=== PATIENT | male | born 1965 | race Caucasian/White ===

== ENCOUNTER 2017-11-10 12:51 | Inpatient (IN) | payer MEDICAID, SELFPAY ==
[2017-11-10] VITALS (36 sets, daily range): BP systolic 59–202; BP diastolic 35–130; PULSE 56–112; RESP 14–24; TEMP 35–35.7; O2SAT 83–100; BMI 26.0; BMI 22.6
--- NOTE | 2017-11-10 12:56 | EKG12_ITS ---
Test Reason : POST ARREST Blood Pressure : / mmHG Vent. Rate : 072 BPM Atrial Rate : 072 BPM P-R Int : 144 ms QRS Dur : 148 ms QT Int : 460 ms P-R-T Axes : 075 046 108 degrees QTc Int : 503 ms Normal sinus rhythm Right bundle branch block T wave abnormality, consider lateral ischemia Abnormal ECG Confirmed by MINESH CABRERA, ASHLY ([id number]), editor continuity and script LLOYD PERDUE ([id number]) on 11/17/2017 8:35:42 AM Referred By: NAV Confirmed By:ASHLY EDGE MD
--- NOTE | 2017-11-10 12:56 | CT_ITS ---
STUDY: CT BRAIN WITHOUT CONTRAST REASON FOR EXAM: Male, 52 years old. Severe occipital headaches. CODE BLUE. RADIATION DOSAGE (If Supplied By Facility): CTDIvol = ( 44.99 ) mGy, DLP = ( 745.49 ) mGycm TECHNIQUE: Transaxial CT imaging of the brain was performed without administration of intravenous contrast material. Individualized dose optimization techniques were used for this CT. COMPARISON: None. FINDINGS: Normal soft tissue structures. Normal calvarium. Normal size ventricles and extra-axial spaces for the patient's age. Normal white matter tracts of the cerebral hemispheres. Normal basal ganglia and thalami. Normal brainstem. Normal cerebellum. There is no intracranial hemorrhage. There are no findings of an acute ischemic infarction. Normal visualized paranasal sinuses. CT/Brain/Head without Contrast IMPRESSION: Normal unenhanced CT scan of the brain. Electronically Signed: Jose Daniel Marie MD at 13:33 EST Tel [phone], Service support ,
--- NOTE | 2017-11-10 13:02 | NURSING ---
NO OLD EKGS
--- NOTE | 2017-11-10 13:13 | ED.DCSUM_ITS ---
- ER Visit Summary Date of Service: 11/10/17 Chief Complaint: Found unresponsive in garage History of Present Illness: The patient is a 52 M with no past medical history on no medications or herbal supplements was found unresponsive garage floor. No motor vehicles were running. Initial rhythm was V. fib. He arrived with a wide complex rhythm and hypotension. He was intubated successfully in the field. Breath sounds were noted bilaterally and there was appropriate change on capnometer. Raya states he was seen at urgent care for occipital headache and received a tetanus shot. Spoke with his mother at 1305. She states he saw the doctor a couple of days ago for chest pain. He has been complaining of occipital/posterior neck pain for the past 2 days. He apparently has not felt well and has had weight loss. She confirms he has no medical problems other than allergy to bee sting and is on no medication or herbal supplements. He does not smoke or drink. Physical Examination: Pupils are fixed and dilated. GCS is 3T. Trachea is midline. Breath sounds are noted bilaterally. Heart is regular. Pulses noted upper and lower extremities and symmetric. Abdomen is flat. Test Results: First EKG reveals a sinus rhythm rate of 72 with right bundle branch block. Chest x-ray reveals endotracheal tube to be in proper position. CT of the head reviewed by me reveals no acute subarachnoid hemorrhage or intracranial hemorrhage to explain patient's occipital headache. CBC is unremarkable. BMP reveals a CO2 of 13 with an anion gap of 28. Creatinine is 2.16 and glucose is 544. ALT and AST are greater than 900. INR and PTT are elevated at 2.0 and 81.4. Troponins indeterminate 0.36. Lactate is 21.9. This has poor prognosis. Emergency Department Course and Treatment: Patient was placed on ventilator. OG was placed per nursing staff and Hooper was placed per nursing staff. Because chief complaint was head pain a CT of the head was obtained to rule out subarachnoid hemorrhage. Troponin was added since mother reports he complained of chest pain 2-3 days ago. Hypothermic protocol was not initiated since patient is hemodynamically unstable. Chest x-ray was obtained to confirm position of endotracheal tube and orogastric tube. Bradycardia event in the radiology suite. Dr. Sauer intervened. He was brought back to the ER after completion of his scan. He has had 2 additional episodes of PEA. He was treated per ACLS algorithm. After second event spoke with nephew, brother and mother. It was determined if he has another episode of PEA will not intervene. Mother and brother were informed he will require admission to the intensive care unit. Depending on test results he may need transfer to a tertiary care facility. Treatment Plan: Treat hyperglycemia, hypotension and admission to ICU. Dr. Vic Girard is aware patient. Dr. Pascual has been made aware patient. Disposition: Admit ICU critical condition Impression: 1. Cardiopulmonary arrest 2. DIC 3. Shock liver 4. New right bundle branch block with elevated troponin 5. Lactic acidosis (anion gap acidosis) 6. Hyperglycemia 7. Renal failure, creatinine 2.16 8. Hypotension/PEA This note was generated with [employer] dictation software. It may contain incorrect words, spelling, and punctuation that were not noted in review of the chart prior to signing ED Disposition - Plan for ED Patient: Chief Complaint: CPR Referrals: Bhaskar Blake MD [Primary Care Provider] -
[2017-11-10 13:19] LABS: Prothrombin Time (Protime)PT. 21.9 SECONDS (11.7-14.9)
[2017-11-10 13:20] LABS: Partial Thromboplast Time 81.4 Seconds (24.1-36.2)
[2017-11-10 13:30] LABS: Hematocrit 41.3 % (40-54); Hemoglobin 13.2 g/dl (13.0-16.5); Mean Corpuscular Hgb 31.1 pg (27.0-32.0); Mean Corpuscular Volume 97.2 fL (80-94); Mean Platelet Vol. 10.9 fl (6.2-12.0); Platelet Count 87 K/mm3 (150-450); RBC Distribution Width CV 12.4 % (11.6-14.6); RBC Distribution Width SD 42.6 fl (35.1-43.9); Red Blood Count 4.25 M/mm3 (4.6-6.2)
[2017-11-10 13:31] LABS: Differential Indicated MANUAL DIFF; POSITIVE COUNT YES; POSITIVE DIFFERENTIAL YES; POSITIVE MORPHOLOGY YES
[2017-11-10 13:39] LABS: ALB/GLOB Ratio 1.1 RATIO (0.9-2.4); AST(SGOT) 975 U/L (15-37); Alanine Aminotransfer ALT/SGPT 951 U/L (16-61); Albumin, Serum 3.1 g/dL (3.2-5.0); Alkaline Phosphatase 124 U/L (45-117); Anion Gap 28 (5-15); BUN 17 mg/dL (7-18); BUN/Creat Ratio 7.9 RATIO (10-20); Calcium,Total 9.2 mg/dL (8.5-10.1); Chloride 100 mmol/L (98-107); Creatinine, Serum 2.16 mg/dL (0.70-1.30); EST Glomerular Filtration Rate 34 mL/min (>60); Est Glom Filt Rate - Afr Amer 41 mL/min (>60); Estimated Creatinine Clearance 46.51 ml/min; Globulin 2.8 g/dL (2.2-4.2); Glucose 544 mg/dL (70-110); Protein, Total 5.9 g/dL (6.4-8.2); Sodium Level 141 mmol/L (136-145)
--- NOTE | 2017-11-10 13:39 | EKG12_ITS ---
Test Reason : REPEAT Blood Pressure : / mmHG Vent. Rate : 099 BPM Atrial Rate : 099 BPM P-R Int : 130 ms QRS Dur : 148 ms QT Int : 402 ms P-R-T Axes : 076 047 077 degrees QTc Int : 515 ms Normal sinus rhythm Right bundle branch block Abnormal ECG Confirmed by MINESH CABRERA, ASHLY ([id number]), editor trade journal LLOYD PERDUE ([id number]) on 11/17/2017 8:36:00 AM Referred By: KELLY Confirmed By:ASHLY EDGE MD
[2017-11-10 13:52] LABS: Lactic Acid 21.9 mmol/L (0.4-2.0)
[2017-11-10] MEDS: Sodium Bicarbonate 8.4% 50 ML Syringe 100 MEQ IV (14:12)
[2017-11-10 14:16] LABS: Base Excess -25 mmol/L (-2 to +2); Blood Gas Specimen Type ART; FI02 100; Mode A-C; O2 Delivery Device Vent; PEEP 5; PO2 275 mmHG (75-100); RR 14; SITE R Radial; SO2 99 % (95-99); Time Given 1410; Total Carbon Dioxide 12 mmol/L; Vt 500; pCO2 67.7 mmHg (35-45); pH 6.78 (7.35-7.45)
[2017-11-10 14:20] LABS: Blast 1 % (0-0); Eosinophil 2 % (0-5); Lymphocyte 63 % (19-41); Metamyelocyte 2 % (0-1); Monocyte 3 % (0-10); Neutrophil-Band 7 % (0-5); Neutrophil-Segmented 22 % (47-70); Total Cells Counted 100 (MANUAL DIFF)
[2017-11-10 14:21] LABS: Crenated RBC RARE
[2017-11-10 14:23] LABS: Absolute Lymphocyte Count 6.49 X10^3/ul (0.83-4.51); Absolute Neutrophil Count 2.9 X10^3/uL (2.0-7.7); Lymphocyte # 6.49 X10^3/ul (4.0); Neutrophil # 2.91 X10^3/uL (2.7-7.7)
--- NOTE | 2017-11-10 14:27 | CASEMGMT ---
Responded to Code Blue paged overhead. This worker was present as pt arrived and squad provided report. No family present at time of arrival. Dish Washer also present and awaiting family. Family later arrived; manufacturer's service representative provided support with no additional SW needs reported.
--- NOTE | 2017-11-10 14:29 | PCM.HP.STD ---
Problem List (1) Sudden cardiac arrest Status: Acute (2) Acute respiratory failure Status: Acute (3) Septic shock of unknown origin Status: Acute (4) Shock liver Status: Acute (5) Severe metabolic acidosis Status: Acute (6) Kidney failure Status: Acute Qualifiers: Renal failure chronicity: unspecified chronicity Qualified Code(s): N19 - Unspecified kidney failure Comment: Unclear acute or chronic History of Present Illness Date of Admission: 11/10/17 Chief Complaint: Found unconscious in the garage floor and intubated in the field. The patient is a 52 year old M with no significant past medical history was brought in to ER by EMS, found unconscious lying on the garage floor and was intubated in the field. As per mother and brothers at the bedside in ER, he complained of occipital and neck pain for last 2 days. Complaining of hot sensation, feverish like for last 2-3 weeks after the flu shot at others for feeling cold. He also was not feeling well and had some weight loss for 2-3 weeks but was working in the garage until morning today. There is no sick contact as per the mother. As per the EMS note he was coded 3 times and was shocked twice because of V. fib rhythm, first one 200 J and second 300 J. Probably patient had CODE BLUE 3 times as per the EMS report. He got TIP by the squad In ER,Patient was coded blue in the CT scan suite. CPR was continued. BLS and ACLS protocol was followed. The patient was revived. The first CODE BLUE was about 4 second between 5931-8629 hours. Rhythm after the code was PEA. Patient was again coded blue for 2 to minutes in ER shortly. Altogether he got one Epi and one bicarb in ER. Discussed with the mother and brothers present in the room and they do not want CPR if he gets further cardiac arrest. Pillowcase Maker Dr. Girard was notified by Dr. Dueñas, the ED physician. CT brain reported normal unenhanced. EKG before the CODE BLUE shows normal sinus rhythm with right bundle branch block at 72 bpm with T-wave inversion in V1 to V3, [address]. Past Medical History Allergies bee venom protein (honey bee) Allergy (Verified 11/10/17 14:10) Unknown Home Medications: Ambulatory Orders Medication Instructions Recorded NK [NK] 11/10/17 Smoking Status: Unknown if ever smoked Alcohol: None Drugs: None Review of Systems Unable to obtain accurate/complete ROS d/t: Patient was unconscious and intubated after CPR by EMS. VTE Information - Inpt Only VTE Present on Admission: No VTE Mechan Device Prophylaxis: SCD's VTE Pharm Prophylaxis ordered?: Yes Patient Problems: Active and Suspected Problems Sudden cardiac arrest (Acute) Acute respiratory failure (Acute) Septic shock of unknown origin (Acute) Shock liver (Acute) Severe metabolic acidosis (Acute) Kidney failure (Acute) Unclear acute or chronic - Physical Exam General: Oriented x3, - - Unconscious and unresponsive. HEENT: - - Bilateral pupils are dilated and fixed Oral: Dry Mucosa, - - Intubated with OG tube Neck: Supple, No JVD, Negative Carotid Bruits Lungs: Clear to auscultation, Normal air movement Cardiovascular: Normal S1, Normal S2, No murmurs, - - Weak pulse. On IV Levophed drip. Abdomen: Bowel Sounds Present, Soft, Non Tender, Hypoactive Bowel Sounds Extremities: No edema, Capillary Refill Less than 3 Seconds Skin: No rashes, No breakdown Musculoskeletal: No Tenderness to Palpation of Joints or Extremities Neurological: Cranial nerves II-XII grossly intact, - - Patient is unconscious and unresponsive so detailed neuro exam is not possible. Psych/Mental Status: Normal Affect, Appropriate Vital Signs Temp Pulse Resp BP Pulse Ox 96.3 F L 107 H 14 202/130 H 97 11/10/17 13:22 11/10/17 13:46 11/10/17 13:46 11/10/17 13:30 11/10/17 13:46 Oxygen Flow Rate 15 Oxygen Delivery Method Mechanical Ventilator Weight: 202 lb 13.204 oz Body Mass Index (BMI) 26.0 Laboratory Tests Past 24 Hrs 11/10/17 11/10/17 11/10/17 13:00 13:00 13:00 WBC 10.0 RBC 4.25 L Hgb 13.2 Hct 41.3 MCV 97.2 H MCH 31.1 MCHC 32.0 RDW 12.4 RDW Differential 42.6 Plt Count 87 L MPV 10.9 Neut % (Auto) Not Reportable Absolute Neuts (auto) 2.9 Absolute Lymphs (auto) 6.49 H Total Counted 100 Neutrophils % (Manual) 22 L Band Neutrophils % 7 H Lymphocytes % (Manual) 63 H Monocytes % (Manual) 3 Eosinophils % (Manual) 2 Metamyelocytes % 2 H Blast Cells % 1 H* Diff Path Review May foll RBC Morphology RARE PT 21.9 H INR 2.0 APTT 81.4 H Specimen Type Sample Site pH Bicarbonate Actual POC Total CO2 Base Excess O2 Saturation O2 % ABG pCO2 ABG pO2 Respiration Rate O2 Delivery Device Vent Mode Tidal Volume POC PEEP Blood Gas Notified Whom Blood Gas Notified Time Sodium 141 Potassium 4.0 Chloride 100 Carbon Dioxide 13.0 L Anion Gap 28 H BUN 17 Creatinine 2.16 H Estim Creat Clear Calc 46.51 Est GFR (MDRD) Af Amer 41 L Est GFR (MDRD) Non-Af 34 L BUN/Creatinine Ratio 7.9 L Glucose 544 H* Lactic Acid Calcium 9.2 Total Bilirubin 0.40 AST 975 H ALT 951 H Alkaline Phosphatase 124 H Troponin I 0.36 H Total Protein 5.9 L Albumin 3.1 L Globulin 2.8 Albumin/Globulin Ratio 1.1 11/10/17 11/10/17 13:00 14:06 WBC RBC Hgb Hct MCV MCH MCHC RDW RDW Differential Plt Count MPV Neut % (Auto) Absolute Neuts (auto) Absolute Lymphs (auto) Total Counted Neutrophils % (Manual) Band Neutrophils % Lymphocytes % (Manual) Monocytes % (Manual) Eosinophils % (Manual) Metamyelocytes % Blast Cells % Diff Path Review RBC Morphology PT INR APTT Specimen Type ART Sample Site R Radial pH 6.78 L* Bicarbonate Actual 10.0 L POC Total CO2 12 Base Excess -25 L O2 Saturation 99 O2 % 100 ABG pCO2 67.7 H* ABG pO2 275 H Respiration Rate 14 O2 Delivery Device Vent Vent Mode A-C Tidal Volume 500 POC PEEP 5 Blood Gas Notified Whom ED MD Blood Gas Notified Time 1410 Sodium Potassium Chloride Carbon Dioxide Anion Gap BUN Creatinine Estim Creat Clear Calc Est GFR (MDRD) Af Amer Est GFR (MDRD) Non-Af BUN/Creatinine Ratio Glucose Lactic Acid 21.9 H* Calcium Total Bilirubin AST ALT Alkaline Phosphatase Troponin I Total Protein Albumin Globulin Albumin/Globulin Ratio Assessment/Plan Active and Suspected Problems Sudden cardiac arrest (Acute) Acute respiratory failure (Acute) Septic shock of unknown origin (Acute) Shock liver (Acute) Severe metabolic acidosis (Acute) Kidney failure (Acute) Unclear acute or chronic The patient is a 52 year old M with no significant past medical history was brought in to ER by EMS, found unconscious lying on the garage floor and was intubated in the field. As per mother and brothers at the bedside in ER, he complained of occipital and neck pain for last 2 days. Complaining of hot sensation, feverish like for last 2-3 weeks after the flu shot at others for feeling cold. He also was not feeling well and had some weight loss for 2-3 weeks but was working in the garage until morning today. There is no sick contact as per the mother. As per the EMS note he was coded 3 times and was shocked twice because of V. fib rhythm, first one 200 J and second 300 J. Probably patient had CODE BLUE 3 times as per the EMS report. He got TIP by the squad In ER,Patient was coded blue in the CT scan suite. CPR was continued. BLS and ACLS protocol was followed. The patient was revived. The first CODE BLUE was about 4 second between 9872-9624 hours. Rhythm after the code was PEA. Patient was again coded blue for 2 to minutes in ER shortly. Altogether he got one Epi and one bicarb in ER. Discussed with the mother and brothers present in the room and they do not want CPR if he gets further cardiac arrest. Pillowcase Maker Dr. Girard was notified by Dr. Dueñas, the ED physician. CT brain reported normal unenhanced. EKG before the CODE BLUE shows normal sinus rhythm with right bundle branch block at 72 bpm with T-wave inversion in V1 to V3, [address] depression. 1. Status post cardiac arrest in field at patient's home: Currently patient is being admitted in ICU. On resuscitation measures with IV Levophed drip, intubation on ventilator, urine output measurement and hypothermia protocol. Dr. Girard is being made aware by Dr. Dueñas. Cycle cardiac enzymes. 2D echo ordered. Cardiology consult. With the medical collections representative Dr. Romeo. 2. Acute hypoxic and hypercarbic respiratory failure after cardiac arrest and intubation in the field: ABG done shows pH 6.78/68/275 at 100% FiO2/500/5 PEEP/14. ABG. On vent management as per Dr. Girard. 3. Possible septic shock with renal failure unclear whether acute or chronic: There is possibility of possible viral infection/bacterial infection as the patient is complaining neck pain and occipital headache. Air droplet precaution. On IV vancomycin, Rocephin, acyclovir ampicillin. ID consult. Follow sepsis protocol with blood cultures ?2, sputum culture, and respiratory panel. Discussed with the ID Dr. Delong 4. Renal failure unclear whether acute or chronic: Patient has Hooper catheter. Monitor intake and output. Avoid nephrotoxic medication and adjust dose as per the creatinine clearance. 5. Unconsciousness and unresponsive, etiology unclear: Discussed with the patient mother and brother. Patient was last seen at around 11:00 in the morning today and squad came after that her father found him unresponsive so exact. Of unconsciousness is unclear but guess about an hour. CODE STATUS: As mentioned above discussed with the patient's mother and 2 brothers and they agreed no more CPR. DNR CC arrest Code Visit Inpatient E&M: 17646 Init Hosp L3 Procedures: 29461 Advncd Care Plan 30 Min
--- NOTE | 2017-11-10 14:32 | NURSING ---
ICU 2 SHOCK, SP CARDIAC ARREST DARION
--- NOTE | 2017-11-10 15:35 | ECHOD_ITS ---
Reason For Study: ARRHYTHMIA Procedure This was a 2D Doppler, Color Flow transthoracic echocardiogram. Technically difficult study- pt on vent and scanned supine. Exam performed portable in ICU/CCU. Left Ventricle Normal LV size. Left ventricular systolic function is normal. The estimated ejection fraction is 65 %. Transmitral doppler flow suggestive of impaired relaxation of left ventricle. No regional wall motion abnormalities noted. Right Ventricle Normal RV size. Normal systolic function. Atria Normal left atrium. Normal right atrium. No doppler evidence for ASD. Mitral Valve There is no mitral annular calcification. Normal mitral valve. Tricuspid Valve Normal tricuspid valve. Trivial tricuspid valve insufficiency. Right ventricular systolic pressure estimated to be 28 mmHg. Aortic Valve Trisinus/trileaflet aortic valve. Normal aortic valve. Pulmonic Valve The pulmonic valve is not well visualized. Great Vessels Normal sized aortic root. Pericardium/Pleural No pericardial effusion. MMode/2D Measurements & Calculations LVIDd: 3.2 cm IVSd: 1.1 cm LA dimension: 2.4 cm LVIDs: 1.9 cm LVPWd: 1.2 cm RVDd: 2.5 cm FS: 40.3 % Doppler Measurements & Calculations MV E max lalo: 49.7 cm/sec TR max lalo: 250.9 cm/sec MV A max lalo: 59.1 cm/sec TR max P.2 mmHg MV E/A: 0.84 Interpretation Summary Left ventricular systolic function is normal. The estimated ejection fraction is 65 %. Trivial tricuspid valve insufficiency. Right ventricular systolic pressure estimated to be 28 mmHg. Transmitral doppler flow suggestive of impaired relaxation of left ventricle Ordering Physician: Harry Pascual Referring Physician: MOHIT LIN Performed By: Gertrude Gray, RDCS, RVT
[2017-11-10] MEDS: fentaNYL 100 MCG/2 ML Ampul 50 MCG IV (15:49)
--- NOTE | 2017-11-10 15:57 | CHAPLAIN ---
Type of Pastoral Visit ___ Initial Visit ___ Follow-up Visit ___ On-call Visit ___ General Patient Visit ___ Spiritual Assessment ___ Family Conference ___ Bereavement ___ Rapid Response _x__ Code Blue ___ Other (describe below) Pastoral Care Referral From ___ Patient ___ Family ___ Nurse ___ Physician ___ Before School ___ Estimator Project Manager _x__ Other (describe below) Sacrament/Intervention _x__ Active listening ___ Anointing ___ Adventism ___ Bereavement ___ Communion ___ Renee exploration ___ ___ Life review _x__ Prayer ___ Reconciliation ___ Sacrament of Sick _x__ Supportive presence ___ Wedding ___ Other (describe below) Pastoral Comments met with family members as they came into hospital following the squad to ED; sat with family, moved them into spaces for consultations, took them to ICU trauma room for time with patient, and gave general support, water, prayer, and presence; later found family members in ICU waiting room and offered any future support desired;
--- NOTE | 2017-11-10 16:00 | NURSING ---
Central line placement in progress
--- NOTE | 2017-11-10 16:15 | RAD_ITS ---
STUDY: X-RAY CHEST REASON FOR EXAM: Male, 52 years old. Endotracheal tube placement TECHNIQUE: Single AP portable view of the chest. COMPARISON: None. FINDINGS: There is an endotracheal tube present 4.2 cm above the feliciano. There is a right-sided internal jugular venous line. There is a patchy interstitial nodular pattern so the right upper lobe. There is no demonstrated pleural abnormality. Normal size heart. Normal mediastinum and kari. Normal visualized pulmonary arteries. Normal visualized aortic arch and descending thoracic aorta. Normal visualized thoracic spine. Normal visualized ribs, clavicles, and shoulders. There is no demonstrated abnormality of the visualized soft tissue structures of the upper abdomen. RAD/Chest 1 View (Portable) IMPRESSION: Lines as detailed above. Patchy interstitial nodular appearance of the right upper lobe which may represent atelectasis versus developing infiltrate possible aspiration. Electronically Signed: Nickie Benites MD at 16:58 EST Tel , Service support ,
[2017-11-10 16:17] LABS: CRP < 2.90 mg/L (0.0-3.0); Magnesium 3.1 mg/dL (1.6-2.6)
--- NOTE | 2017-11-10 16:19 | PCM.OP.BLANK ---
Problem List (1) Sudden cardiac arrest Status: Acute Operative Report Date of Procedure: 11/10/17 - Triple-lumen catheter insertion Central line placement procedure note Indication: IV access/hemodynamic instability/vasoactive medications Procedure: A time-out was completed to verify correct patient, indication, medication allergies, procedure, coagulation studies, informed consent signed, and equipment needed. The patient was placed in the supine position for a central line placement to the rt IJ vein. The patients rt neck was prepped using chlorhexidine and a full body sterile drape was applied. 1% lidocaine was used to anesthetize the surrounding skin. A 7fr 16 cm blue guard triple lumen catheter introduced into the internal jugular vein using the modified Seldinger technique with the assistance of ultrasound. The catheter was threaded smoothly over the guidewire, the guidewire was removed easily, nonpulsatile blood returned. All ports were aspirated of air and flushed with sterile saline. The catheter was sutured in place and covered with an occlusive dressing impregnated with chlorhexidine. Post-procedure: The patient tolerated the procedure well. Vital signs remained stable. EBL 0 cc. No complications. Chest X Ray ordered and confirmed tip placement and the absence of pneumothorax.
--- NOTE | 2017-11-10 16:30 | NURSING ---
Echo in progress
--- NOTE | 2017-11-10 16:34 | CON.PCM_ITS ---
Reason for Consult Date of Consultation: 11/10/17 Reason for Consultation: Acute respiratory failure/cardiac arrest History of Present Illness: The patient is a 52-year-old male, with a history as outlined below, who presented to the emergency department via EMS after being found unresponsive by family members. The patient reportedly went outside shortly after 11:00 to feed his animals. Approximately 15-20 minutes later a family member went outside and found him unresponsive on the garage floor. It took EMS approximately 10 minutes to arrive on the scene. In general, there is an approximate estimation of between 30 and 45 minutes of downtime. The patient reportedly has no significant prior medical history, but his family readily admits that he has not seen a physician. CPR was initiated in the field and the patient was intubated. His initial EKG rhythm in the field was reported to be V. fib. He did reportedly receive a shock at 200 J. On presentation to the emergency department, the patient was noted to have a GCS score of 3T and was hypotensive with a wide-complex rhythm. The patient was sent to radiology to obtain a stat CT head, during which time he sustained a PEA cardiac arrest. ROSC was initially achieved. However, the patient subsequently experienced 2 additional episodes of PEA arrest requiring additional ACLS. Laboratory evaluation revealed an INR of 2.0. Initial arterial blood gas revealed a pH of 6.78 with a PCO2 of 68. Chemistry profile was notable for a serum bicarbonate of 13 with an elevated anion gap of 28 and a corresponding lactic acid of 22. There was evidence of acute kidney injury with a creatinine of 2.16. Glucose was elevated to 544. Magnesium was increased to 3.1. There was evidence of shock liver with elevated transaminases and alkaline phosphatase. Troponin was elevated to 0.36. After ROSC was achieved following ACLS, the patient was transferred to the medical intensive care unit for ongoing management. CODE STATUS and goals of care were discussed with the patient's family, including the patient's mother and siblings. They did elect to transition the patient to DNR CCA. Past Medical History Allergies bee venom protein (honey bee) Allergy (Verified 11/10/17 15:41) Swelling Home Medications: Ambulatory Orders Medication Instructions Recorded NK [NK] 11/10/17 Smoking Status: Unknown if ever smoked Alcohol: None Drugs: None Review of Systems Unable to obtain accurate/complete ROS d/t: Due to current intubation and mechanical ventilation status Objective: The patient's most recent lab work, culture data and imaging studies have all been personally reviewed. Stat bedside echocardiogram revealed normal LV size and function with an ejection fraction of 65%. There was evidence of diastolic dysfunction. Right ventricular systolic pressure was estimated to be 28 mmHg. - Physical Exam General: - - Intubated and mechanically ventilated. No dyssynchrony noted on assist control. HEENT: Atraumatic, Normocephalic, - - Nonresponsive pupillary reflex Oral: Moist Mucosa, No Gingival or Mucosal Lesions/ Ulcerations, - - Endotracheal and OG tube in place Neck: Supple, No Nodes, Trachea Midline, - - Right-sided central venous catheter in place Lungs: No rhonchi, No wheeze, Diminished, Rales Cardiovascular: Normal S1, Normal S2, No murmurs, No rub noted, No Gallop, Tachycardic Abdomen: Bowel Sounds Present, Soft, Distended Extremities: No clubbing, No cyanosis, No edema Skin: No rashes, No breakdown Musculoskeletal: No Muscle Wasting Neurological: - - The patient is nonresponsive to verbal and noxious stimulation. There is no gag reflex. Vital Signs Temp Pulse Resp BP Pulse Ox 96.3 F L 95 14 120/56 L 100 11/10/17 13:22 11/10/17 15:04 11/10/17 15:04 11/10/17 15:04 11/10/17 15:04 Oxygen Delivery Method Mechanical Ventilator Laboratory Tests Past 24 Hrs 11/10/17 15:40 MRSA (PCR) Pending Labs (Last 48 Hours) 11/10/17 11/10/17 11/10/17 13:00 13:00 13:00 WBC 10.0 RBC 4.25 L Hgb 13.2 Hct 41.3 MCV 97.2 H MCH 31.1 MCHC 32.0 RDW 12.4 RDW Differential 42.6 Plt Count 87 L MPV 10.9 Neut % (Auto) Not Reportable Absolute Neuts (auto) 2.9 Absolute Lymphs (auto) 6.49 H Total Counted 100 Neutrophils % (Manual) 22 L Band Neutrophils % 7 H Lymphocytes % (Manual) 63 H Monocytes % (Manual) 3 Eosinophils % (Manual) 2 Metamyelocytes % 2 H Blast Cells % 1 H* Diff Path Review May foll RBC Morphology RARE PT 21.9 H INR 2.0 APTT 81.4 H Specimen Type Sample Site pH Bicarbonate Actual POC Total CO2 Base Excess O2 Saturation O2 % ABG pCO2 ABG pO2 Respiration Rate O2 Delivery Device Vent Mode Tidal Volume POC PEEP Blood Gas Notified Whom Blood Gas Notified Time Sodium 141 Potassium 4.0 Chloride 100 Carbon Dioxide 13.0 L Anion Gap 28 H BUN 17 Creatinine 2.16 H Estim Creat Clear Calc 46.51 Est GFR (MDRD) Af Amer 41 L Est GFR (MDRD) Non-Af 34 L BUN/Creatinine Ratio 7.9 L Glucose 544 H* Lactic Acid Calcium 9.2 Magnesium Total Bilirubin 0.40 AST 975 H ALT 951 H Alkaline Phosphatase 124 H Troponin I 0.36 H C-React Prot Ext Range Total Protein 5.9 L Albumin 3.1 L Globulin 2.8 Albumin/Globulin Ratio 1.1 MRSA (PCR) 11/10/17 11/10/17 11/10/17 13:00 13:00 14:06 WBC RBC Hgb Hct MCV MCH MCHC RDW RDW Differential Plt Count MPV Neut % (Auto) Absolute Neuts (auto) Absolute Lymphs (auto) Total Counted Neutrophils % (Manual) Band Neutrophils % Lymphocytes % (Manual) Monocytes % (Manual) Eosinophils % (Manual) Metamyelocytes % Blast Cells % Diff Path Review RBC Morphology PT INR APTT Specimen Type ART Sample Site R Radial pH 6.78 L* Bicarbonate Actual 10.0 L POC Total CO2 12 Base Excess -25 L O2 Saturation 99 O2 % 100 ABG pCO2 67.7 H* ABG pO2 275 H Respiration Rate 14 O2 Delivery Device Vent Vent Mode A-C Tidal Volume 500 POC PEEP 5 Blood Gas Notified Whom ED Blood Gas Notified Time 1410 Sodium Potassium Chloride Carbon Dioxide Anion Gap BUN Creatinine Estim Creat Clear Calc Est GFR (MDRD) Af Amer Est GFR (MDRD) Non-Af BUN/Creatinine Ratio Glucose Lactic Acid 21.9 H* Calcium Magnesium 3.1 H Total Bilirubin AST ALT Alkaline Phosphatase Troponin I C-React Prot Ext Range < 2.90 Total Protein Albumin Globulin Albumin/Globulin Ratio MRSA (PCR) 11/10/17 15:40 WBC RBC Hgb Hct MCV MCH MCHC RDW RDW Differential Plt Count MPV Neut % (Auto) Absolute Neuts (auto) Absolute Lymphs (auto) Total Counted Neutrophils % (Manual) Band Neutrophils % Lymphocytes % (Manual) Monocytes % (Manual) Eosinophils % (Manual) Metamyelocytes % Blast Cells % Diff Path Review RBC Morphology PT INR APTT Specimen Type Sample Site pH Bicarbonate Actual POC Total CO2 Base Excess O2 Saturation O2 % ABG pCO2 ABG pO2 Respiration Rate O2 Delivery Device Vent Mode Tidal Volume POC PEEP Blood Gas Notified Whom Blood Gas Notified Time Sodium Potassium Chloride Carbon Dioxide Anion Gap BUN Creatinine Estim Creat Clear Calc Est GFR (MDRD) Af Amer Est GFR (MDRD) Non-Af BUN/Creatinine Ratio Glucose Lactic Acid Calcium Magnesium Total Bilirubin AST ALT Alkaline Phosphatase Troponin I C-React Prot Ext Range Total Protein Albumin Globulin Albumin/Globulin Ratio MRSA (PCR) Pending Clinical Impression(s) from Imaging Studies Brain CT 11/10/17 12:56 IMPRESSION: Normal unenhanced CT scan of the brain. Electronically Signed: Jose Daniel Marie MD at 13:33 EST Tel [phone], Service support , Assessment/Plan RECOMMENDATIONS: 1. Continue current supportive measures with mechanical ventilation and broad- spectrum antimicrobials. 2. Obtain repeat arterial blood gas and augment ventilator settings to maximize minute ventilation 3. Start bicarbonate drip 150 mEq at 150 mL's per hour. 4. Change from Lovenox to heparin for prophylaxis, given the patient's underlying renal insufficiency 5. Give 1 L of lactated Ringer's. 6. Continue vasopressor support to maintain hemodynamic stability 7. Initiate insulin regimen for hyperglycemia 8. Trend troponins 9. Cardiology and neurology consultations are pending. 10. Infectious workup is underway. IMPRESSIONS: 1. Acute hypoxemic and hypercarbic respiratory failure following cardiac arrest Continue current supportive measures with mechanical ventilation and broad- spectrum antimicrobial coverage, given concern for potential aspiration event. Repeat arterial blood gas and augment ventilator settings to maximize minute ventilation. Infectious workup will be undertaken. 2. Cardiogenic versus distributive shock Continue current vasopressor support and attempt to maintain a mean arterial pressure at or above 65 mmHg. Continue to trend troponins. Cardiology consultation is pending. Infectious workup is in process. Broad-spectrum antibiotics will be started in the interim. 3. Multisystem organ dysfunction, including shock liver and acute kidney injury Secondary to #2. Continue vasopressor support to maintain hemodynamic stability. Renal insufficiency likely secondary to ATN in the setting of prolonged cardiac arrest. Given the severe acidosis noted on ABG, continuous bicarbonate infusion will be started. 4. Concern for anoxic encephalopathy Initial CT had showed no acute process. Supportive measures will be continued as noted above. Neurology has been consulted to assist with prognostication. 5. Troponin elevation Concern for underlying primary cardiac event, given ventricular fibrillation noted prior to arrival to the emergency department. We will continue to trend troponins accordingly. Cardiology has been consulted. 6. Anion gap metabolic acidosis/lactic acidemia We will give 1 L of lactated Ringer's and continue vasopressor support to maintain hemodynamic stability. Sodium bicarbonate drip will be started. 7. Coagulopathy Secondary to #3. We will continue to monitor. 8. Hyperglycemia Start Accu-Cheks and sliding scale coverage accordingly. 9. CODE STATUS Confirmed with family to be DNR CCA. The patient is at exceedingly high risk for clinical decompensation over the next 12 hours. TIME: 50 minutes of critical care time, independent of procedures, was spent addressing the patient's acute respiratory failure, cardiopulmonary arrest, multisystem organ dysfunction, shock liver, acute kidney injury, suspected anoxic encephalopathy, troponin elevation, anion gap metabolic acidosis, coagulopathy, review of all data and collaboration with the care team. (1600- 1700) Code Visit 9xxxx: [id number] Critical care first hour
[2017-11-10] MEDS: 0.9% Normal Saline 1,000 ML 150 ML IV (16:44)
--- NOTE | 2017-11-10 16:46 | PCM.CONS.C ---
Problem List (1) Sudden cardiac arrest Status: Acute Reason for Consult Date of Consultation: 11/10/17 History of Present Illness: The patient is a 52 year old M with no significant past medical history. He presented via EMS. According to the chart, the patient was found unresponsive by family members who called EMS. EMS arrived on the scene and found him with cardiac arrest. There is a question that he was in V. tach ventricular fibrillation at that time. CPR was commenced. She was then brought to the emergency room. He arrested again in the emergency room and had to be resuscitated again. Total approximate downtime is between 30-50 minutes. Of these, about 20-30 minutes have been without CPR. No history of cardiac problems in the past. [] Past Medical History Allergies/Adverse Reactions: Allergies bee venom protein (honey bee) Allergy (Verified 11/10/17 15:41) Swelling Home Medications: Ambulatory Orders Medication Instructions Recorded NK [NK] 11/10/17 Surgical History: no surgical history Psychiatric History: No pertinent psych hx Smoking Status: Unknown if ever smoked Alcohol: None Drugs: None Review of Systems - Review of Systems General: Reports: Fever, Fatigue, - - Unable to obtain. Patient is intubated.. Denies: Night Sweats Cardiovascular: Reports: Chest Discomfort, Shortness of Breath, Orthopnea, PND, Peripheral Edema, Palpitations, Lightheadedness, Dizziness, Near Syncope, Syncope Respiratory: Reports: Cough, Sputum Production, Hemoptysis Gastrointestinal: Reports: Hematemesis, Hematochezia, Melena Genitourinary: Reports: Dysuria, Hematuria Skin: Reports: Rash Subjectve: Patient is intubated. On the ventilator. Objective: Vital Signs Temp Pulse Resp BP Pulse Ox 95.4 F L 102 H 15 102/83 H 99 11/10/17 16:30 11/10/17 16:30 11/10/17 16:15 11/10/17 16:30 11/10/17 16:30 Oxygen Delivery Method Mechanical Ventilator General: - - Intubated. On the ventilator. HEENT: Atraumatic Oral: Moist Mucosa Lungs: Clear to auscultation Cardiovascular: Normal S1, Normal S2 Abdomen: Soft Extremities: No edema Neurological: - - Pupils are equal. Dilated.Fixed Rhythm: Sinus tachycardia EKG: Normal sinus rhythm. Right bundle branch block pattern. ST changes suggestive of lateral ischemia ECHO: Preliminary echo read shows hyperdynamic left ventricle. Assessment/Plan 1. Sudden cardiac arrest with prolonged downtime. Consider primarily metabolic. Left ventricle is hyperdynamic on echocardiogram. Doubt primary cardiac etiology. The long-term outlook would be determined by patient's chance of any neurological recovery 2. Shock. Patient on norepinephrine infusion. Titrate as needed 3. Acute renal failure. Also noted thrombocytopenia. Consider nephrology consult 4. Thrombocytopenia 5. Severe metabolic acidosis 6. Acute liver injury 7. Ventilator dependent respiratory failure Current supportive care and your medical management as initiated. Will follow with you. Overall prognosis is at best guarded
--- NOTE | 2017-11-10 17:08 | NURSING ---
Beronica BECKMAN at bedside for central line insertion. Timeout completed. Central line inserted without difficulty.
[2017-11-10 17:19] LABS: M R Staph aureus DNA By PCR Negative (Negative); Probe Check PASS; Specimen Processing Control PASS
[2017-11-10 17:20] LABS: Reflex Lactate? Y
[2017-11-10 17:30] LABS: Mucous, Urine 0 SEEN /hpf (<or=2+); Squamous Epithelial Cells - UA 0 SEEN /hpf (0-5)
[2017-11-10 17:32] LABS: Color, Urine Straw (Yellow); Glucose, Dipstick 1000 mg/dl (Normal); Ketone-Dipstick 5 mg/dl (Negative); Leukocyte Esterase-Dipstick Negative /ul (Negative); Nitrite-Dipstick Negative (Negative); Occult Blood-Urine 250 /ul (Negative); Protein-Dipstick 100 mg/dl (Negative); Specific Gravity, Urine 1.015 (1.002-1.030); Urine Bilirubin Dipstick Negative (Negative); Urine Clarity Sl. Cloudy (Clear); Urine Urobilinogen Normal (Normal)
[2017-11-10 17:44] LABS: Coarse Granular Cast 0-5 SEEN /lpf (0-5 /lpf)
[2017-11-10 17:45] LABS: BNP,B-Type NATRIURETIC PEPTIDE 6.2 pg/mL (0-100)
[2017-11-10 17:46] LABS: White Blood Cells 0-5 SEEN /hpf (0-5)
[2017-11-10 17:47] LABS: Bacteria RARE /hpf (None Seen)
[2017-11-10 17:55] LABS: Transitional Epithelial - Ur 0-5 SEEN /hpf (0-5)
[2017-11-10 17:58] LABS: Red Blood Cells-Urine 0-5 SEEN /hpf (0-5)
[2017-11-10 18:02] LABS: Amphetamine Urine VISTA NEGATIVE (<1000 ng/mL); Barbiturate Urine VISTA NEGATIVE (< 200 ng/mL); Benzodiazepine Urine VISTA NEGATIVE (< 200 ng/mL); Cocaine Urine VISTA NEGATIVE (< 300 ng/mL); Ecstacy Urine VISTA NEGATIVE (< 500 ng/mL); Methadone Urine VISTA NEGATIVE (< 300 ng/mL); PCP Urine VISTA NEGATIVE (< 25 ng/mL); THC Urine VISTA NEGATIVE (< 50 ng/mL); Vista UDS pH Range 6
[2017-11-10 18:26] LABS: Bedside Glucose 450 mg/dL (70-110)
[2017-11-10 18:48] LABS: Lactic Acid 11.2 mmol/L (0.4-2.0)
[2017-11-10] MEDS: 0.9% NaCl Peripheral Flush Adult/Peds IV (19:08)
[2017-11-10 19:26] LABS: Allen Test POS; Base Excess -15 mmol/L (-2 to +2); Bicarbonate 13.5 mmol/L (22-26); Blood Gas Specimen Type ART; FI02 50; Mode A-C; O2 Delivery Device Vent; PEEP 5; PO2 52 mmHG (75-100); RR 18; SITE L Radial; SO2 78 % (95-99); Time Given 1904; Total Carbon Dioxide 15 mmol/L; Vt 550; pCO2 35.4 mmHg (35-45); pH 7.19 (7.35-7.45)
[2017-11-10 22:04] LABS: Reflex Lactate? Y
--- NOTE | 2017-11-11 01:00 | PCM.DEATH ---
Preliminary Cause of Sudden cardiac Date of Admission: 11/10/17 Date of : 11/10/17 - At 2100 hrs. - Principle Diagnosis 1. Sudden cardiac arrest at home status post intubation and CPR at home with prolonged downtime; probably metabolic/infectious cause cause. 2. Acute hypoxic and hypercarbic combined respiratory failure, exact etiology unclear; possible metabolic/infectious cause 3. Shock possible septic shock/distributive walk 4. Acute kidney injury, exact etiology unclear possible ATN 5. Multisystem organ dysfunction including shock liver and an acute kidney injury 6. Concern for anoxic encephalopathy 7. High anion gap metabolic acidosis with lactic acidemia 8. Coagulopathy with thrombocytopenia Prolonged unconscious and unresponsive etiology unclear. Hospital Course The patient was a 52 year old M with no significant past medical history was brought in to ER by EMS, found unconscious lying on the garage floor and was intubated in the field. As per mother and brothers at the bedside in ER, he complained of occipital and neck pain for last 2 days. Complaining of hot sensation, feverish like for last 2-3 weeks after the flu shot at others for feeling cold. He also was not feeling well and had some weight loss for 2-3 weeks but was working in the garage until morning today. There is no sick contact as per the mother. As per the EMS note he was coded 3 times and was shocked twice because of V. fib rhythm, first one 200 J and second 300 J. Probably patient had CODE BLUE 3 times as per the EMS report. In ER,Patient was coded blue with cardiac arrest in the CT scan suite. CPR was continued. BLS and ACLS protocol was followed. The patient was revived. The first CODE BLUE was about 4 second between 0459-3905 hours. Rhythm after the code was PEA. Patient was again coded blue for 2 to minutes in ER shortly. Altogether he got one Epi and one bicarb in ER. Discussed with the mother and brothers present in the room and they do not want CPR if he gets further cardiac arrest. Heavy Equipment Operator Dr. Girard was notified by Dr. Dueñas, the ED physician. CT brain reported normal unenhanced. EKG before the CODE BLUE shows normal sinus rhythm with right bundle branch block at 72 bpm with T-wave inversion in V1 to V3, [address] depression. The patient was transferred to ICU. Heavy Equipment Operator, Dr. Girard, safemaker Dr. Romeo, ID Dr. Delong and the corn cooker were consulted. 1. Sudden cardiac arrest at home status post intubation and CPR at home with prolonged downtime about 30-50 minutes; probably metabolic/infectious cause cause. : The patient was on resuscitation measures with IV Levophed drip, intubation on ventilator, urine output measurement and hypothermia protocol. Dr. Girard saw the patient and his consult appreciated . serial cardiac enzymes showed elevation most rapidly after cardiac arrest. Dr. Romeo saw the patient and read the echo and found hyperdynamic LV function. EF 65%, no regional wall motion abnormality. Normal RV size and function. Normal right and left atria. He thinks the cause of sudden cardiac arrest progressively not primary cardiac etiology. 2. Acute hypoxic and hypercarbic respiratory failure after cardiac arrest and intubation in the field: ABG done shows pH 6.78/68/275 at 100% FiO2/500/5 PEEP/14. ABG. On vent management as per Dr. Girard. 3. Possible septicdistributive shock with renal failure unclear whether acute or chronic: There is possibility of possible viral infection/bacterial infection as the patient is complaining neck pain and occipital headache. Air droplet precaution. On IV vancomycin, Rocephin, acyclovir ampicillin. ID consult. Follow sepsis protocol with blood cultures ?2, sputum culture, and respiratory panel. Discussed with the ID Dr. Delong 4. Acute kidney injury with thrombocytopenia and coagulopathy possible due to ATN: Patient has Hooper catheter. Monitor intake and output. Avoid nephrotoxic medication and adjust dose as per the creatinine clearance. 5. Multisystem organ dysfunction including shock liver and an acute kidney injury 6. Concern for anoxic encephalopathy 7. High anion gap metabolic acidosis with lactic acidemia 8. Coagulopathy with thrombocytopenia Prolonged unconscious and unresponsive etiology unclear. CODE STATUS: Advance care directive and CODE STATUS was discussed with the patient's mother and 2 brothers and they agreed no more CPR. DNR CC arrest. Despite all possible resuscitative measures, patient at 2100 hrs. on November 10, 2017 Code Visit Inpatient E&M: [id number] Disch Hosp
[2017-11-11 10:39] LABS: Pathologist Review Reviewed
--- NOTE | 2017-11-11 13:31 | EXP.PCM_ITS ---
Preliminary Cause of Sudden cardiac Date of Admission: 11/10/17 Date of : 11/10/17 - At 2100 hrs. - Principle Diagnosis 1. Sudden cardiac arrest at home status post intubation and CPR at home with prolonged downtime; probably metabolic/infectious cause cause. 2. Acute hypoxic and hypercarbic combined respiratory failure, exact etiology unclear; possible metabolic/infectious cause 3. Shock possible septic shock/distributive walk 4. Acute kidney injury, exact etiology unclear possible ATN 5. Multisystem organ dysfunction including shock liver and an acute kidney injury 6. Concern for anoxic encephalopathy 7. High anion gap metabolic acidosis with lactic acidemia 8. Coagulopathy with thrombocytopenia Prolonged unconscious and unresponsive etiology unclear. Hospital Course The patient was a 52 year old M with no significant past medical history was brought in to ER by EMS, found unconscious lying on the garage floor and was intubated in the field. As per mother and brothers at the bedside in ER, he complained of occipital and neck pain for last 2 days. Complaining of hot sensation, feverish like for last 2-3 weeks after the flu shot at others for feeling cold. He also was not feeling well and had some weight loss for 2-3 weeks but was working in the garage until morning today. There is no sick contact as per the mother. As per the EMS note he was coded 3 times and was shocked twice because of V. fib rhythm, first one 200 J and second 300 J. Probably patient had CODE BLUE 3 times as per the EMS report. In ER,Patient was coded blue with cardiac arrest in the CT scan suite. CPR was continued. BLS and ACLS protocol was followed. The patient was revived. The first CODE BLUE was about 4 second between 5621-9689 hours. Rhythm after the code was PEA. Patient was again coded blue for 2 to minutes in ER shortly. Altogether he got one Epi and one bicarb in ER. Discussed with the mother and brothers present in the room and they do not want CPR if he gets further cardiac arrest. Assistant Kitchen Manager Dr. Girard was notified by Dr. Dueñas, the ED physician. CT brain reported normal unenhanced. EKG before the CODE BLUE shows normal sinus rhythm with right bundle branch block at 72 bpm with T-wave inversion in V1 to V3, [address] depression. The patient was transferred to ICU. Assistant Kitchen Manager, Dr. Girard, ski lift mechanic Dr. Romeo, ID Dr. Delong and the graphics software engineer were consulted. 1. Sudden cardiac arrest at home status post intubation and CPR at home with prolonged downtime about 30-50 minutes; probably metabolic/infectious cause cause. : The patient was on resuscitation measures with IV Levophed drip, intubation on ventilator, urine output measurement and hypothermia protocol. Dr. Girard saw the patient and his consult appreciated . serial cardiac enzymes showed elevation most rapidly after cardiac arrest. Dr. Romeo saw the patient and read the echo and found hyperdynamic LV function. EF 65%, no regional wall motion abnormality. Normal RV size and function. Normal right and left atria. He thinks the cause of sudden cardiac arrest progressively not primary cardiac etiology. 2. Acute hypoxic and hypercarbic respiratory failure after cardiac arrest and intubation in the field: ABG done shows pH 6.78/68/275 at 100% FiO2/500/5 PEEP/ 14. ABG. On vent management as per Dr. Girard. 3. Possible septicdistributive shock with renal failure unclear whether acute or chronic: There is possibility of possible viral infection/bacterial infection as the patient is complaining neck pain and occipital headache. Air droplet precaution. On IV vancomycin, Rocephin, acyclovir ampicillin. ID consult. Follow sepsis protocol with blood cultures ?2, sputum culture, and respiratory panel. Discussed with the ID Dr. Delong 4. Acute kidney injury with thrombocytopenia and coagulopathy possible due to ATN: Patient has Hooper catheter. Monitor intake and output. Avoid nephrotoxic medication and adjust dose as per the creatinine clearance. 5. Multisystem organ dysfunction including shock liver and an acute kidney injury 6. Concern for anoxic encephalopathy 7. High anion gap metabolic acidosis with lactic acidemia 8. Coagulopathy with thrombocytopenia Prolonged unconscious and unresponsive etiology unclear. CODE STATUS: Advance care directive and CODE STATUS was discussed with the patient's mother and 2 brothers and they agreed no more CPR. DNR CC arrest. Despite all possible resuscitative measures, patient at 2100 hrs. on November 10, 2017 Code Visit Inpatient E&M: [id number] Disch Hosp
[2017-11-13 10:21] LABS: Allen Test POS; Blood Gas Specimen Type ART; SITE R RADIAL
[2017-11-13 10:22] LABS: EPAP 10; FI02 40; IPAP 20; O2 Delivery Device Bi Pap
[2017-11-13 10:23] LABS: Time Given 1440; pH 7.34 (7.35-7.45)
[2017-11-13 10:24] LABS: Base Excess 26 mmol/L (-2 to +2); Bicarbonate 51.8 mmol/L (22-26); PO2 68 mmHG (75-100); pCO2 96.3 mmHg (35-45)
[2017-11-13 10:25] LABS: SO2 90 % (95-99); Total Carbon Dioxide > 50 mmol/L
== END 2017-11-10 21:00 | DRG 129 ==
LOC: ED 13:48 → ICU 14:34
PROVIDERS: Internal Medicine Critical Care Medicine; Admitting Provider Internal Medicine; Emergency Provider Emergency Medicine; Family Provider Family Medicine; PCP Family Medicine; Visit Provider Internal Medicine
DX: I46.9 Cardiac arrest, cause unspecified (principal); D65 Disseminated intravascular coagulation [defibrination syndrome]; J96.01 Acute respiratory failure with hypoxia; J96.02 Acute respiratory failure with hypercapnia; K72.00 Acute and subacute hepatic failure without coma; N17.0 Acute kidney failure with tubular necrosis; A41.9 Sepsis, unspecified organism; G93.1 Anoxic brain damage, not elsewhere classified; R65.21 Severe sepsis with septic shock; E87.2 Acidosis; Z99.11 Dependence on respirator [ventilator] status; I49.01 Ventricular fibrillation; R73.9 Hyperglycemia, unspecified; I45.10 Unspecified right bundle-branch block
CPT/HCPCS: 31500; 31720; 36600; 51702; 70450; 71045; 80053; 80307; 81001; 82009; 82803; 82962; 83605; 83735; 83880; 84484; 85025; 85610; 85730; 86140; 87040; 87633; 87641; 92950; 93005; 93306; 94002; 99251; 99285; J7030; J7040; J7050; A4216; C1751; G0463; J0696; J3490